=== PATIENT | male | born 1990 | race Caucasian/White ===

== ENCOUNTER 2016-09-03 16:51 | Inpatient (IN) | payer BC, OTHER ==
[~2016-09-03] VITALS: Ht 185.4 cm; Wt 69.4 kg
[2016-09-03] MEDS ORDERED: VORT10TA12 PO (17:13)
[2016-09-03] MEDS ORDERED: PRZ1 PO (17:13)
--- NOTE | 2016-09-03 17:13 | EMERGENCY ROOM VISIT NOTE ---
History Report prepared by Bright: Yasir De La O Under the Supervision of: Dr. Yasir Ramon M.D. First contact with patient: 17:03 Chief Complaint: MENTAL HEALTH EVALUATION Stated Complaint: MENTAL HEALTH EVAL History of Present Illness The patient is a 26 year old male who presents to the Emergency Room with complaints of a mental health evaluation. He notes he is having trouble with his depression and anxiety. He has been seeing counselors at [facility] for 2 months, and had been seen before then. He was receiving medications that he notes makes him sick and does not relieve his depressive or anxious symptoms. He notes he is starting to feel hopeless, feels like he has hit a end, and has a hard time eating, going places, and sleeping. He has recently lost weight. He reports he was on unemployment which ended at the beginning of this morning. He is having a hard time finding a job and adds that he smokes marijuana and tobacco, though he denies alcohol use. He notes the marijuana takes away his nausea and gives him energy. He admits to having abdominal tenderness and has back pain which causes numbness in his toes. The patient denies any other medical problems. He states his psychiatrist thinks he should go inpatient. Source of History: patient, parent Onset: a few days ago Position: other (global) Quality: other (mental health evaluation) Timing: other (episode) Associated Symptoms: + abdominal pain, + back pain, + numbness (in toes) Review of Systems See HPI for pertinent positives & negatives. A total of 10 systems reviewed and were otherwise negative. Past Medical & Surgical Medical Problems: (1) Anxiety (2) Depression (3) Meningitis Nos (4) Sciatica Surgical Problems: (1) No significant past surgical history Old medical records were reviewed. Nurse's notes were reviewed and I agree with. Family History No pertinent family history. Social History Smoking Status: Never Smoker Smokeless Tobacco Use: Yes Alcohol Use: none Drug Use: marijuana Marital Status: single Occupation Status: employed Current/Historical Medications Scheduled Prazosin HCl (Prazosin HCl), 2 MG PO HS Vortioxetine HBr (Trintellix), 20 MG PO NOON Allergies Coded Allergies: No Known Allergies (Unverified , 09/03/16) Physical Exam Vital Signs Date Time Temp Pulse Resp B/P Pulse Ox O2 Delivery O2 Flow Rate FiO2 09/03/16 18:57 70 15 121/80 99 Room Air 09/03/16 17:02 36.7 71 20 145/85 98 Room Air Physical Exam General: Well developed well nourished in no acute distress, breathing comfortably on room air. Normal speech. Non-ill appearing, young male. HEENT: Normal cephalic atraumatic. Pupils are equal round and reactive to light. Extraocular movements are intact. Oropharynx is pink with moist mucous membranes. No swelling of the mouth lips or tongue. Neck: Supple with a midline trachea. No meningeal signs or stiffness, no JVD or bruits. No Stridor. Chest: Clear to auscultation bilaterally. No wheezes or rhonchi. No increased work of breathing. Heart: regular rate and rhythm. Abdomen: Soft nontender, nondistended without rebound guarding or rigidity. Extremities: No cyanosis clubbing or edema. No calf tenderness or assymetry Spine/Back. Non tender to palpation. No CVA tenderness Skin: Good turgor without rashes. Neurologic exam: Cranial nerves two through 12 are intact. Motor and sensation are intact and symmetrical throughout. Psych: Somewhat flattened affect; no suicidal or homicidal ideations. Medical Decision & Procedures Laboratory Results 09/03/16 17:20 Red Blood Count 4.95, Mean Corpuscular Volume 93.7, Mean Corpuscular Hemoglobin 34.3, Mean Corpuscular Hemoglobin Concent 36.6, Mean Platelet Volume 9.1, Neutrophils (%) (Auto) 69.2, Lymphocytes (%) (Auto) 22.4, Monocytes (%) (Auto) 5.7, Eosinophils (%) (Auto) 2.3, Basophils (%) (Auto) 0.2, Neutrophils # (Auto) 5.60, Lymphocytes # (Auto) 1.82, Monocytes # (Auto) 0.46, Eosinophils # (Auto) 0.19, Basophils # (Auto) 0.02 09/03/16 17:20 Test 09/03/16 17:00 09/03/16 17:20 Urine Opiates Screen NEG (NEG) Urine Methadone, Qualitative NEG (NEG) Urine Barbiturates NEG (NEG) Urine Phencyclidine (PCP) Level NEG (NEG) Ur Amphetamine/Methamphetamine NEG (NEG) MDMA (Ecstasy) Screen NEG (NEG) Urine Benzodiazepines Screen NEG (NEG) Urine Cocaine Metabolite NEG (NEG) Urine Marijuana (THC) POS (NEG) White Blood Count 8.11 K/uL (4.8-10.8) Red Blood Count 4.95 M/uL (4.7-6.1) Hemoglobin 17.0 g/dL (14.0-18.0) Hematocrit 46.4 % (42-52) Mean Corpuscular Volume 93.7 fL (80-100) Mean Corpuscular Hemoglobin 34.3 pg (25-34) Mean Corpuscular Hemoglobin Concent 36.6 g/dl (32-36) Platelet Count 251 K/uL (130-400) Mean Platelet Volume 9.1 fL (7.4-10.4) Neutrophils (%) (Auto) 69.2 % Lymphocytes (%) (Auto) 22.4 % Monocytes (%) (Auto) 5.7 % Eosinophils (%) (Auto) 2.3 % Basophils (%) (Auto) 0.2 % Neutrophils # (Auto) 5.60 K/uL (1.4-6.5) Lymphocytes # (Auto) 1.82 K/uL (1.2-3.4) Monocytes # (Auto) 0.46 K/uL (0.11-0.59) Eosinophils # (Auto) 0.19 K/uL (0-0.5) Basophils # (Auto) 0.02 K/uL (0-0.2) RDW Standard Deviation 45.4 fL (36.4-46.3) RDW Coefficient of Variation 13.2 % (11.5-14.5) Immature Granulocyte % (Auto) 0.2 % Immature Granulocyte # (Auto) 0.02 K/uL (0.00-0.02) Anion Gap 8.0 mmol/L (3-11) Est Creatinine Clear Calc Drug Dose 128.9 ml/min Estimated GFR () 141.3 Estimated GFR (Non- 122.0 BUN/Creatinine Ratio 15.0 (10-20) Calcium Level 9.3 mg/dl (8.5-10.1) Total Bilirubin 0.3 mg/dl (0.2-1) Direct Bilirubin < 0.1 mg/dl (0-0.2) Aspartate Amino Transf (AST/SGOT) 10 U/L (15-37) Alanine Aminotransferase (ALT/SGPT) 25 U/L (12-78) Alkaline Phosphatase 95 U/L (45-117) Total Protein 8.0 gm/dl (6.4-8.2) Albumin 4.6 gm/dl (3.4-5.0) Lipase 132 U/L (73-393) Salicylates Level < 1.7 mg/dl (2.8-20) Acetaminophen Level < 2 ug/ml (10-30) Ethyl Alcohol mg/dL < 3.0 mg/dl (0-3) Laboratory studies as stated above per my review. ED Course 170: Past medical records reviewed. The patient was evaluated in room A5, and a complete history and physical examination were performed. 1856: The patient has been medically cleared and will be seen by 3 A[facility]. Medical Decision Differentials include anxiety, depression, suicidal ideations, and electrolyte or metabolic abnormality. This patient comes in as described above. He was placed in room A5. Here for treatment evaluation increasing anxiety and depression. He's had no suicidal attempts or ideations. He's been tried on multiple meds without much relief. He had does use marijuana. Blood work was obtained. there is no evidence to suggest any acute infectious, toxicologic, or metabolic process. He has a normal neurologic exam and was medically cleared. He seen by 3 S. in the emergency department. they are going to admit him voluntarily to the [facility] for further inpatient treatment and evaluation of this anxiety and depression. Impression Primary Impression: Depression Additional Impression: Anxiety Scribe Attestation The scribe's documentation has been prepared under my direction and personally reviewed by me in its entirety. I confirm that the note above accurately reflects all work, treatment, procedures, and medical decision making performed by me. Departure Information Referrals Joceline Canseco PA-C (PCP) Forms HOME CARE DOCUMENTATION FORM, IMPORTANT VISIT INFORMATION Patient Instructions My [facility] Problem Qualifiers
[2016-09-03 17:39] LABS: BASO % 0.2 %; BASO ABS # 0.02 K/uL (0-0.2); COMPLETE YES; EOS % 2.3 %; HEMATOCRIT 46.4 % (42-52); IG% 0.2 %; LYMPH % 22.4 %; LYMPH ABS # 1.82 K/uL (1.2-3.4); MEAN CELL VOLUME 93.7 fL (80-100); MEAN CORPUSCULAR HEMOGLOBIN 34.3 pg (25-34); MEAN CORPUSCULAR HGB CONC 36.6 g/dl (32-36); MEAN PLATELET VOLUME 9.1 fL (7.4-10.4); MONO % 5.7 %; NEUT % 69.2 %; PLATELET COUNT 251 K/uL (130-400); RED BLOOD COUNT 4.95 M/uL (4.7-6.1); WHITE BLOOD COUNT 8.11 K/uL (4.8-10.8)
[2016-09-03 17:57] LABS: BLOOD UREA NITROGEN 13 mg/dl (7-18); CALCIUM 9.3 mg/dl (8.5-10.1); CARBON DIOXIDE 32 mmol/L (21-32); CHLORIDE 103 mmol/L (98-107); CREATININE 0.85 mg/dl (0.60-1.40); GLUCOSE 93 mg/dl (70-99); POTASSIUM 3.6 mmol/L (3.5-5.1); SODIUM 143 mmol/L (136-145)
[2016-09-03 17:58] LABS: ACETAMINOPHEN < 2 ug/ml (10-30)
[2016-09-03 18:00] LABS: ALKALINE PHOSPHATASE 95 U/L (45-117); ALT/SGPT 25 U/L (12-78); AST/SGOT 10 U/L (15-37)
[2016-09-03 18:17] LABS: BENZODIAZEPINE, URINE NEG (NEG); COCAINE,URINE NEG (NEG); PHENCYCLIDINE, URINE NEG (NEG)
[2016-09-03] MEDS ORDERED: ACETAMINOPHEN 325 MG TAB PO PRN (19:15)
[2016-09-03] MEDS ORDERED: NICOTINE POLACRILEX 2 MG GUM MT PRN (19:15)
[2016-09-03] MEDS ORDERED: hydrOXYzine HCL 25 MG TAB PO PRN ×2 (19:15)
[2016-09-03] MEDS ORDERED: MAGNESIUM HYDROXIDE SUSP 30 ML UDC PO PRN (19:15)
[2016-09-03] MEDS ORDERED: hydrOXYzine HCL 10 MG TAB PO PRN (19:15)
[2016-09-03] MEDS ORDERED: SODIUM CHLORIDE 0.65% NA SOLN 45 ML (OCEAN) PRN (19:15)
[2016-09-03] MEDS ORDERED: ALUMINUM/MAGNESIUM SUSP 30 ML UDC PO PRN (19:15)
[2016-09-03] MEDS ORDERED: BISMUTH SUBSALICYLATE LIQUID 236 ML PO PRN (19:15)
[2016-09-03] MEDS ORDERED: hydrOXYzine HCL IM SOLN 50 MG/ML 1 ML VIAL IM PRN (19:45)
[2016-09-03 20:33] VITALS: O2SAT 99
[2016-09-03 20:54] VITALS: BP 134/86; PULSE 67; TEMP 36.7; Ht 185.4 cm; Wt 69.4 kg
[2016-09-03] MEDS: PRAZOSIN HCL 1 MG CAP PO SCH (22:12)
[2016-09-04] MEDS ORDERED: TRINTELLIX~ORDER AWAITING ACTION SCH
[2016-09-04 06:56] VITALS: BP_SYST 114; BP_SYST 123; BP_DIAS 67; BP_DIAS 76; PULSE 52; PULSE 66; TEMP 36.8
[2016-09-04] MEDS: NICOTINE 21 MG/24 HR TDSY TD SCH (09:15)
[2016-09-04] MEDS ORDERED: QUETIAPINE FUMARATE 25 MG TAB PO PRN (12:45)
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
[2016-09-04] MEDS: PANTOprazole SOD 40 MG TAB PO SCH (15:03)
--- NOTE | 2016-09-04 15:25 | Psych Management Progress Note ---
Psychiatry Miscellaneous Date of Service: Sep 04, 2016. discussed case with outpatient provider at [facility] who confirmed patient's representation of his history and med trials. He had not expressed SI at appointment but she felt he would benefit from inpatient to stabilize medication. She views him as motivated to decrease MJ use and find employment and denies history of drug seeking behavior.
[2016-09-04] MEDS: ESCITALOPRAM OXALATE 10 MG TAB PO SCH (18:07)
[2016-09-04] MEDS ORDERED: QUETIAPINE FUMARATE 25 MG TAB PO SCH (22:00)
[2016-09-04] MEDS: PRAZOSIN HCL 1 MG CAP PO SCH (22:10)
[2016-09-05 06:59] VITALS: BP_SYST 144; BP_SYST 157; BP_DIAS 79; BP_DIAS 80; PULSE 63; PULSE 90; TEMP 36.9
[2016-09-05] MEDS: PANTOprazole SOD 40 MG TAB PO SCH (07:40)
[2016-09-05] MEDS: NICOTINE 21 MG/24 HR TDSY TD SCH (07:42)
[2016-09-05 08:16] LABS: THYROID STIMULATING HORMONE 0.555 uIu/ml (0.300-4.500)
[2016-09-05] MEDS: ONDANSETRON 4MG OD TAB PO PRN (09:05)
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
[2016-09-05] MEDS: ESCITALOPRAM OXALATE 10 MG TAB PO SCH (18:06)
[2016-09-05] MEDS: PRAZOSIN HCL 1 MG CAP PO SCH (21:52)
[2016-09-05] MEDS ORDERED: QUETIAPINE FUMARATE 100 MG TAB PO SCH (22:00)
[2016-09-06 06:57] VITALS: BP_SYST 137; BP_SYST 141; BP_DIAS 81; BP_DIAS 94; PULSE 69; PULSE 74; TEMP 36.8
--- NOTE | 2016-09-06 08:36 | Psychiatric Progress Notes ---
Progress Note Date of Service Sep 06, 2016. Interval History Anatoly Sanchez is a 26-year-old male who from [place] who has a history of anxiety, depression and cannabis abuse and presented on referral from his outpatient psychiatric PA, Joceline Canseco, for voluntary admission due to severe anxiety. He was admitted voluntarily, and has been started on Seroquel and Lexapro. Chief Complaint "Better". Subjective Patient was seen & assessed interval progress reviewed with nursing. Staff report he got Seroquel prn for anxiety but said it didn't help, and only marijuana helps him. He had a good meeting with his girlfriend, and a meeting was scheduled with her for Wednesday at 11am. He remains nauseated after meals, but no vomiting. Today he says he slept better last night and "wasn't nearly as sick as I usually am, so the day started off well." He is working on being more social and interacting more with others, and thinks he is improving. His mood is improved, rates it a 7.5 out of 10. He is pushing himself to talk in groups, which made him feel "courageous." His goal for today is "to make somebody smile. " He thinks the Seroquel helped with sleep and would like to increase the dose. He is tolerating the meds well and although he still had daily nausea, it is improved from admission, and he denies vomiting. He had a good visit with his girlfriend. Sleep Information Total Hours of Sleep: 5.50 Meal Information Percent of Breakfast Consumed: 75 Percent of Lunch Consumed: 50 Percent of Dinner Consumed: 100 Mental Status Exam During interview pt is: alert and oriented Appearance: appropriately dressed, appropriately groomed Eye contact is: fair Motor behavior is: no abnormal motor movements Speech: normal in rate, rhythm & volume Affect: anxious, constricted Mood is: depressed, other ("better") Thought process: clear, coherent Thought content: other (somatic preoccupation) Suicidal thought are: denied Homicidal thoughts are: denied Hallucinations: denies auditory, denies visual Cognition: memory grossly intact, attention grossly intact, language grossly intact Intelligence estimated to be: consistent with level of education Insight: limited Judgement: limited Medication Trials (1) Past Psych Meds notes past med trials of Trintellix, prazosin, Remeron, Zoloft, Wellbutrin and Buspar with no perceived benefit and significant N Last Edited By: Adilene Stratton on Sep 05, 2016 10:17 Impression 26 yo male with history of anxiety, depression, PTSD and significant MJ use presents with very poor functioning at home, weight loss, and inability to take necessary medication due to nausea. At risk due to financial issues, inability to work, MJ use interfering with family relationships, had more negative passive wish around holidays The patient is admitted to [facility] ([facility] unit) on q 15 min checks (behavioral with suicide precautions) for safety. The patient will participate in group, recreational and milieu therapies and will be offered additional individual and family sessions as clinically appropriate. Plan (1) Major depressive disorder, recurrent episode with anxious distress risks/benefits/alternatives reviewed re: trial of Lexapro 5 mg with pm meal for anxiety and depression. Discussion included but was not limited to FDA warnings re: suicidality. given hx of multiple antidepressant trials and severity of symptoms recommend augmentation with a mood stabilizer, also can't exclude bipolar II component. Risks/benefits/alternatives reviewed re: Seroquel 50 mg po qhs (including but not limited to risks of TD, need for metabolic monitoring, combined hypotension/ sedation with prazosin). fasting glu and cholesterol profile in am 09/05 - Cholesterol elevated, will need to follow up with PCP and work on improving diet and increasing exercise. - Continue Lexapro and Seroquel, titrating slowly due to ongoing nausea. Will increase Seroquel to 100mg qhs tonight for sleep, anxiety and mood. - Schedule family meeting with girlfriend and/or parents. 09/06 - Meeting with girlfriend Wednesday at 11am. 09/07 - Increase quetiapine to 150mg qhs at patient's request - Increase escitalopram to 10mg daily (2) Cannabis use disorder, moderate, dependence 09/04 - Discussed impact on mood, patient desires to cut back, will review in family session 09/05 - Consider referral to outpatient substance abuse treatment (3) Social anxiety disorder hx of PTSD, continue prazosin for now Seroquel and Lexapro as above (4) Chronic nausea start PPI, Zofran prn seems anxiety related will need GI f/u (5) Nicotine addiction Continue gum and patch prn cravings Offered cessation education Discharge / Aftercare Planning Primary Care Physician: Name: Baldo Castro in [place] Psychiatrist: Name: Joceline Canseco at [place] Therapist: Name: Cassy Tang Visit Code E&M Code: 17743 Inventory Assets Strengths: loves his son, relationship with father, still willing to try medication Needs: employment Risk Factors Assessment Male: Yes : Yes /single/: Yes Higher / Fall in social status: Yes Health problems: Yes Mental Health Diagnoses: Yes Substance use disorders: Yes Previous attempt: No Family history of suicide: No Previous psychiatric stay: No Protective Factors Assessment Responsible for young children: Yes Employed: No Supportive family: Yes Data Vital Signs Last 24 Hrs: Date Time Temp Pulse Resp B/P Pulse Ox O2 Delivery O2 Flow Rate FiO2 09/06/16 06:57 36.8 69 16 137/81 74 141/94 Meds Administered Last 24 Hrs: Meds Administered (Past 24Hrs) Medications (Trade) Dose Ordered Sig/Brown Route Start Time Stop Time Status Last Admin Dose Admin Nicotine (Nicoderm Cq 21MG Patch) 1 patch QAM TD 09/04/16 09:00 10/04/16 08:59 09/05/16 07:42 1 PATCH Miscellaneous (Remove Nicoderm Patch) 1 ea HS N/A 09/04/16 22:00 10/04/16 21:59 09/05/16 21:52 1 EA Pantoprazole Sodium (Protonix Tab) 40 mg QAM PO 09/04/16 14:00 10/04/16 13:59 09/05/16 07:40 40 MG Escitalopram Oxalate (Lexapro Tab) 5 mg TODAY@1800 PO 09/04/16 18:00 10/04/16 17:59 09/05/16 18:06 5 MG Quetiapine Fumarate (seroQUEL TAB) 12.5 mg Q6 PRN PO 09/04/16 12:45 10/04/16 12:44 09/05/16 13:16 12.5 MG Quetiapine Fumarate (seroQUEL TAB) 50 mg HS PO 09/04/16 22:00 09/05/16 13:28 DC 09/04/16 22:10 50 MG Ondansetron HCl (Zofran Odt) 4 mg Q8H PRN PO 09/04/16 12:45 10/04/16 12:44 09/05/16 09:05 4 MG Quetiapine Fumarate (seroQUEL TAB) 100 mg HS PO 09/05/16 22:00 10/05/16 21:59 09/05/16 21:52 100 MG
[2016-09-06] MEDS: NICOTINE 21 MG/24 HR TDSY TD SCH (08:53)
[2016-09-06] MEDS: PANTOprazole SOD 40 MG TAB PO SCH (08:53)
[2016-09-06] MEDS: ONDANSETRON 4MG OD TAB PO PRN (09:33)
[2016-09-06] MEDS: ESCITALOPRAM OXALATE 10 MG TAB PO SCH (18:09)
[2016-09-06] MEDS: PRAZOSIN HCL 1 MG CAP PO SCH (21:29)
[2016-09-06] MEDS: QUETIAPINE FUMARATE 100 MG TAB PO SCH (21:30)
[2016-09-07 06:54] VITALS: BP_SYST 131; BP_SYST 145; BP_DIAS 89; BP_DIAS 92; PULSE 54; PULSE 76; TEMP 36.6
[2016-09-07] MEDS: NICOTINE 21 MG/24 HR TDSY TD SCH (08:47)
[2016-09-07] MEDS: ONDANSETRON 4MG OD TAB PO PRN (08:47)
[2016-09-07] MEDS: PANTOprazole SOD 40 MG TAB PO SCH (08:47)
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
[2016-09-07] MEDS: ESCITALOPRAM OXALATE 10 MG TAB PO SCH (17:33)
[2016-09-07] MEDS: PRAZOSIN HCL 1 MG CAP PO SCH (21:29)
[2016-09-07] MEDS: QUETIAPINE FUMARATE 100 MG TAB PO SCH (21:29)
[2016-09-08 06:56] VITALS: BP_SYST 126; BP_SYST 130; BP_DIAS 83; BP_DIAS 92; PULSE 75; PULSE 90; TEMP 36.8
[2016-09-08] MEDS: PANTOprazole SOD 40 MG TAB PO SCH (08:02)
[2016-09-08] MEDS: NICOTINE 21 MG/24 HR TDSY TD SCH (08:03)
[2016-09-08] MEDS: ONDANSETRON 4MG OD TAB PO PRN (08:03)
[2016-09-08] MEDS ORDERED: SRQ100 PO (09:21)
[2016-09-08] MEDS ORDERED: ONDA4TAB65 PO (09:21)
[2016-09-08] MEDS ORDERED: PRT40 PO (09:21)
[2016-09-08] MEDS ORDERED: LXP10 PO (09:21)
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
== END 2016-09-08 11:18 | disposition home or self-care (01) | DRG 885 ==
LOC: ENRESERVTM → ENRESERVDT → C.EDB 16:52 → C.MHU 19:18
PROVIDERS: ADMIT Psychiatry & Neurology Psychiatry; ATTEND Psychiatry & Neurology Child & Adolescent Psychiatry
DX: F31.81 Bipolar II disorder (principal); R45.851 Suicidal ideations; F41.9 Anxiety disorder, unspecified; F17.210 Nicotine dependence, cigarettes, uncomplicated; F12.20 Cannabis dependence, uncomplicated; K21.9 Gastro-esophageal reflux disease without esophagitis; Z79.899 Other long term (current) drug therapy